=== PATIENT | female | born 1950 | race Caucasian/White ===

== ENCOUNTER 2021-12-02 09:19 | Outpatient (CLI) | payer MEDICARE, OTHER ==
--- NOTE | 2021-12-03 10:47 | XRAY Report ---
PROCEDURE: Lumbar Spine 2 View INDICATIONS: LOW BACK PX TECHNIQUE: 3 views of the lumbar spine were acquired. COMPARISON: None. FINDINGS: Bones: 5 [id number] vertebrae are present assuming that the level with rudimentary right rib is the T12. There is grade 1 anterolisthesis of L4 on L5 and trace anterolisthesis of L3 on L4. No ve rtebral body compression fractures. No suspicious bony lesions. Degenerative joint disease is prese nt, moderate at L4-L5 and mild at other levels. Moderate facet arthropathy at L3-L4, L4-L5 and L5-S1. Soft tissues: Overlying bowel gas pattern is normal. Vascular calcifications consistent with atheros clerosis. IMPRESSION: 1. Moderate degenerative disc and facet disease. 2. Grade 1 anterolisthesis of L4 on L5. Reviewed by: Edward Hairston MD on 12/03/2021 10:46 AM PDT Approved by: Edward Hairston MD on 12/03/2021 10:46 AM PDT Station ID: [id number]
== END 2021-12-02 23:59 | disposition home or self-care (01) ==
LOC: DI.N 09:19
PROVIDERS: ATTEND Nurse Practitioner
DX: M43.16 Spondylolisthesis, lumbar region (principal); M51.36 Other intervertebral disc degeneration, lumbar region; M47.816 Spondylosis without myelopathy or radiculopathy, lumbar region; M47.817 Spondylosis without myelopathy or radiculopathy, lumbosacral region